=== PATIENT | female | born 1990 | race African-American/Black ===

== ENCOUNTER 2016-06-20 15:32 | Emergency (ER) | payer MEDICAID ==
[~2016-06-20] VITALS: Ht 162.6 cm; Wt 100.0 kg
[~2016-06-20 15:32] MED LIST: PROAIR
[2016-06-20 15:53] VITALS: BP 154/76
[2016-06-20 17:58] LABS: CLARITY URINE CLOUDY (CLEAR); COLOR URINE YELLOW (YELLOW); GLUCOSE URINE NEGATIVE (NEGATIVE); KETONES URINE 1+ (NEGATIVE); LEUKOCYTE ESTERASE URINE TRACE (NEGATIVE); NITRITE URINE NEGATIVE (NEGATIVE); OCCULT BLOOD URINE NEGATIVE (NEGATIVE); PROTEIN URINE NEGATIVE (NEGATIVE); UROBILINOGEN URINE 0.2 E.U./dL (0.2-1.0)
[2016-06-20 18:14] LABS: BACTERIA URINE 2+; RBC URINE 0-2 /hpf (0-2); SQUAMOUS EPITHELIAL CELL URINE 2+ /lpf (RARE/1+); WBC URINE 0-2 /hpf (0-2)
== END 2016-06-20 22:29 | disposition left against medical advice (07) ==
LOC: ER 16:29
DX: R10.9 Unspecified abdominal pain (principal); Z53.21 Procedure and treatment not carried out due to patient leaving prior to being seen by health care provider
CPT/HCPCS: 81001